=== PATIENT | male | born 1975 | race Caucasian/White ===

== ENCOUNTER 2018-02-04 17:08 | Emergency (ER) | payer BC ==
--- NOTE | 2018-02-04 17:23 | Emergency Department Record ---
History of Present Illness - General Chief Complaint: Abdominal Pain Stated Complaint: ABDOMINAL PAIN. Time Seen by Provider: 02/04/18 17:17 Source: Patient Mode of Arrival: Ambulatory Limitations: No limitations - History of Present Illness Initial Comments: The patient is here due to a one day hx of sharp stabbing LUQ AP. He denies any nausea, vomiting, diarrhea, CP, SOB, or CHAU. The patient has had a hx of constipation recently and feels it could be that. He did initially go to the and was sent over here. Additionally there has been no ALLEN, Cp with exertion or back pain. Also the patient does have an insect bite to the R arm that has swollen up locally. It also is very itchy. The patient has a hx of local reactions. MD Complaint: Abdominal pain Onset/Timin -: Hour(s) Location: LUQ Migration to: Epigastric Improves With: Nothing Worsens With: Nothing Associated Symptoms: Nausea, Vomiting - Related Data Previous Rx's Medication Instructions Recorded Prednisone [Prednisone 20Mg] 40 mg PO DAILY #10 tab 02/04/18 Allergies Allergy/AdvReac Type Severity Reaction Status Date / Time No Known Allergies Allergy none Verified 02/04/18 17:19 Travel Screening - Travel/Exposure Within Last 30 Days Have you traveled within the last 30 days?: Yes Location Detail:: [place] - Travel/Exposure Within Last Year Have you traveled outside the [place] in the last year?: No Location Detail:: [facility] - Additonal Travel Details Have you been exposed to anyone with a communicable illness?: No - Travel Symptoms Symptom Screening: None Review of Systems Constitutional: Denies: Chills, Fever Eyes: Denies: Eye discharge ENT: Denies: Congestion Respiratory: Denies: Cough, Dyspnea Past Medical History - SOCIAL HISTORY Smoking Status: Never smoker Alcohol Use: None Drug Use: None - RESPIRATORY Hx Respiratory Disorders: Yes Hx Sleep Apnea: Yes Hx of CPAP: Yes - CARDIOVASCULAR Hx Cardio Disorders: No - NEURO Hx Neuro Disorders: No - GI Hx GI Disorders: No - Hx Genitourinary Disorders: No - ENDOCRINE Hx Endocrine Disorders: No - MUSCULOSKELETAL Hx Musculoskeletal Disorders: No - PSYCH Hx Psych Problems: No - HEMATOLOGY/ONCOLOGY Hx Hematology/Oncology Disorders: No Family Medical History Any Significant Family History?: No Hx Cancer: Mother Hx HTN: Father Hx Kidney Disease: Father Hx Resp Disorders: Father Physical Exam - General General Appearance: Alert, Oriented x3, Cooperative, No acute distress - Head Head exam: Atraumatic, Normocephalic, Normal inspection - Eye Eye exam: Normal appearance, PERRL, EOMI - Neck Neck exam: Normal inspection, Full ROM. negative: Tenderness - Respiratory Respiratory exam: Normal lung sounds bilaterally. negative: Respiratory distress - Cardiovascular Cardiovascular Exam: Regular rate, Normal rhythm, Normal heart sounds - GI/Abdominal GI/Abdominal exam: Soft, Tenderness (There is very reproducible mild LUQ tenderness to palpation.). negative: Distended, Rebound, Rigid - Extremities Extremities exam: Full ROM, Normal capillary refill. negative: Normal inspection (There is an insect sting to the R arm with mild surrounding edema and erythema which appears to be a local allergic rxn.), Tenderness - Neurological Neurological exam: Alert, Normal gait. negative: Abnormal gait, Motor sensory deficit Course Vital Signs 02/04/18 17:09 Pulse Rate 90 Respiratory 16 Rate Blood Pressure 148/95 Pulse Ox 97 - Reevaluation(s) Reevaluation #1: I did recheck the patient and he does not want anything for the pain. I did discuss the CT results and the need for further evaluation with Oncology. Because of that I did discuss the case with Dr. Coleman and she will see the patient in the Specialty clinic hopefully and evaluate him further. She would like a biopsy so I will consult with Dr. Patel for the Biopsy. 02/04/18 18:38 02/04/18 18:44 Medical Decision Making - Data Complexity MDM Data: Labs Ordered and/or Reviewed, X-Ray Ordered and/or Reviewed, EKG Ordered and/or Reviewed - Lab Data Result diagrams: 02/04/18 17:39 02/04/18 17:39 - EKG Data -: EKG Interpreted by Me EKG: No Acute Changes - Radiology Data Radiology results: Report reviewed (CT: No acute process. Extensive lymphadenopathy possibly consistent with Lymphoma. ) Disposition Disposition: Discharge Clinical Impression: Lymphadenopathy Disposition: Home, Self-Care Condition: (2) Stable Instructions: Lymphadenopathy (ED) Additional Instructions: Please take Tylenol for the AP and the Prednisone for the L arm swelling at the bite site. Please see Dr. Patel on Friday in the Specialty clinic for a lymph node biopsy. DO NOT EAT OR DRINK PAST MIDNIGHT ON FRIDAY DUE TO THE BIOPSY ON FRIDAY. Also plan on seeing Dr. Coleman in the Specialty clinic on . Return to the ER for any worsening problems. Prescriptions: Prednisone [Prednisone 20Mg] 40 mg PO DAILY #10 tab Referrals: [facility] Specialty Clinics [Provider Group] Forms: Patient Portal Access Time of Disposition: 18:52 Quality - Quality Measures Quality Measures: N/A - Blood Pressure Screening View Details: Yes Does Patient Have Any of the Following: No Blood Pressure Classification: Hypertensive Reading Systolic Measurement: 148 Diastolic Measurement: 95 Screening for High Blood Pressure: < First Hypertensive BP, F/U Documented > [ [id number]] First Hypertensive Follow-up Interventions: Referral to alternative/primary care provider.
[2018-02-04] MEDS ORDERED: MAGNESIUM HYDROXIDE/AL HYDROX 30 ML, LIDOCAINE VISC 2% 15ML 15 ML PO ONE ×2 (17:27)
[2018-02-04 17:41] LABS: BASO % 0.3 % (0-6); GRAN % 57.5 % (47-80); HEMATOCRIT 44.8 % (42.0-52.0); HEMOGLOBIN 15.3 gm/dl (14.0-18.0); LYMPH % 27.5 % (16-45); MEAN CORPUSCULAR HEMOGLOBIN 30.1 pg (27-33); MEAN CORPUSCULAR HGB CONC 34.2 g/dl (32-36); MEAN PLATELET VOLUME 9.4 fl (7.4-10.4); MONO % 8.7 % (0-9); PLATELET COUNT 169 K/uL (130-400); RED BLOOD COUNT 5.09 M/uL (4.40-5.70); RED CELL DISTRIBUTION WIDTH 13.8 % (11.5-14.5); WHITE BLOOD COUNT W/O DIFF 6.7 K/uL (4.2-12.2)
[2018-02-04 17:51] LABS: URINE APPEARANCE CLEAR; URINE BILIRUBIN NEGATIVE (NEGATIVE); URINE BLOOD TRACE-I (NEGATIVE); URINE COLOR YELLOW; URINE GLUCOSE (UA) NEGATIVE (NEGATIVE); URINE KETONE NEGATIVE (NEGATIVE); URINE LEUKOCYTE ESTERASE NEGATIVE (NEGATIVE); URINE NITRITE NEGATIVE (NEGATIVE); URINE PROTEIN NEGATIVE (NEGATIVE); URINE UROBILINOGEN 0.2 E.U./dL (0.20 - 1.00)
[2018-02-04 17:53] LABS: BLOOD UREA NITROGEN 18 mg/dL (6-20); CREATININE 0.9 mg/dL (0.7-1.2); EST GLOMERULAR FILTRATION RATE > 60 mL/min; TOTAL PROTEIN 7.4 g/dL (6.6-8.7)
[2018-02-04 17:55] LABS: GLUCOSE,RANDOM 118 mg/dL (74-109)
[2018-02-04 17:58] LABS: ALBUMIN 4.3 g/dL (4.0-5.0); ALKALINE PHOSPHATASE 46 U/L (40-129); ALT/SGPT 30 U/L (<41); AST/SGOT 23 U/L (10.0-50.0)
[2018-02-04 17:59] LABS: BILIRUBIN,DIRECT < 0.2 mg/dL (0-0.3); URINE EPITHELIAL CELLS 0 - 2 (FEW); URINE RBC 0 - 2 (NONE SEEN); URINE WBC 0 - 2 (0-2/hpf)
[2018-02-04 18:00] LABS: URINE BACTERIA NONE SEEN
[2018-02-04] MEDS ORDERED: KETOROLAC 30 MG/ML VIAL IVP ONE (18:31)
--- NOTE | 2018-02-06 12:36 | CT SCAN REPORT ---
EXAM: CT SCAN OF THE ABDOMEN AND PELVIS WITHOUT CONTRAST HISTORY: SHARP LEFT UPPER QUADRANT ABDOMINAL PAIN AND RIB PAIN. NO KNOWN INJURY. TECHNIQUE: Standard CT imaging of the abdomen and pelvis was performed without contrast. Comparison: None. FINDINGS: The lung bases are clear. There are mildly enlarged right epicardial lymph nodes. The largest measures 1.5 x 2.9 cm. Multiple smaller epicardial lymph nodes are present bilaterally. The liver is normal in appearance. The gallbladder, biliary tree, pancreas, spleen, and adrenal glands are normal. The kidneys and ureters are unremarkable. There is no hydronephrosis or urinary tract calculus. The aorta is normal in caliber. There is a mildly enlarged portal caval lymph node measuring 1.8 x 2.6 cm. There are numerous scattered nonenlarged lymph nodes within the mesentery with a few borderline enlarged lymph nodes. The largest of these is located within the central mesentery and measures 1.1 x 1.6 cm. The large and small bowel loops are normal in appearance. The appendix is visualized and is unremarkable. There is no pneumoperitoneum or ascites. There are mildly enlarged lymph nodes within the external iliac chains bilaterally. The largest on the right measures 1.2 x 3.3 cm. The largest on the left measures 1.4 x 3 cm. Bilateral inguinal lymphadenopathy is also present. The largest on the right measures 2 x 3.2 cm. The largest on the left measures 1.4 x 2.5 cm. The urinary bladder and prostate gland appear normal. Bilateral spondylolysis is present at the L5 level with Grade 1 spondylolisthesis of L5 on S1. Degenerative changes are also present within the lumbar spine. No osteoblastic or osteolytic process is identified. IMPRESSION: 1. NO ACUTE INTRAABDOMINAL PATHOLOGY. THE ETIOLOGY OF THE PATIENT'S LEFT UPPER QUADRANT PAIN IS NOT APPARENT ON THIS EXAMINATION. 2. THERE ARE MULTIPLE MILDLY ENLARGED LYMPH NODES WITHIN THE EPICARDIAL SPACE, RETROPERITONEUM, MESENTERY, PELVIS, AND BILATERAL INGUINAL REGIONS. THIS PATTERN IS NONSPECIFIC, BUT SUSPICIOUS FOR LYMPHOMA. 3. THERE IS NO URINARY TRACT CALCULUS OR OBSTRUCTIVE UROPATHY. 4. BILATERAL SPONDYLOLYSIS AT THE L5 LEVEL WITH GRADE 1 SPONDYLOLISTHESIS OF L5 ON S1. JOB NUMBER: [id number] MTDD
== END 2018-02-04 19:05 | disposition home or self-care (01) ==
LOC: ER 17:08
DX: R59.0 Localized enlarged lymph nodes (principal); R10.12 Left upper quadrant pain; R11.2 Nausea with vomiting, unspecified
CPT/HCPCS: 74176; 80048; 80076; 81001; 83690; 85025; 93005; 93010; 99284

== ENCOUNTER 2018-02-09 08:55 | Day surgery (SDC) | payer BC ==
[2018-02-09] MEDS ORDERED: ONDANSETRON HCL IV 4 MG/2 ML VIAL IVP ONE (08:56)
[2018-02-09] MEDS ORDERED: MIDAZOLAM HCL 2MG/2ML VIAL IV ONE (08:56)
[2018-02-09] MEDS ORDERED: ACETAMINOPHEN 1,000 MG/100 ML BTL IV ONE (08:56)
[2018-02-09] MEDS ORDERED: SEVOFLURANE 250 ML INH ONE (08:56)
[2018-02-09] MEDS ORDERED: PROPOFOL 10 MG/ML VIAL IV ONE (08:56)
[2018-02-09] MEDS ORDERED: FENTANYL PF 100MCG/2ML VIAL IV ONE (08:56)
[2018-02-09] MEDS ORDERED: LIDOCAINE 2% MDV (20MG/ML) 20ML VIAL IV ONE (08:56)
[2018-02-09] MEDS ORDERED: BUPIVACAINE 0.25% W/EPI MPF 30ML VIAL IVP ONE (08:56)
[2018-02-09] MEDS ORDERED: CEFAZOLIN 2 Gram 2 GM/50 ML BAG IVPB ONE (08:56)
--- NOTE | 2018-02-12 10:39 | Operative Note ---
DATE OF SURGERY: 02/09/2018 Surgeon: Louie Patel DO PREOPERATIVE DIAGNOSIS: Lymphadenopathy. POSTOPERATIVE DIAGNOSIS: Lymphadenopathy. OPERATION: Right groin exploration with lymphadenectomy. Indication: The patient is a 42-year-old male who went to the ER over the weekend due to him not feeling well. CT scan did show fairly decreased lymphadenopathy in the retroperitoneal region as well as bilateral groin region. On exam, he had bilateral lymphadenopathy noted, more so on the right. We did discuss excision. Risks, benefits, and alternatives were discussed. Risks include bleeding, infection, lymphocele formation. He understood this fully. Thereafter, consent was signed and questions answered. PROCEDURE: The patient was taken to the operating room and placed in a supine position. General anesthesia was administered per the department of anesthesia. The patient's right groin was shaved of hair and prepped and draped in the usual fashion. Oblique region was anesthetized with a total of 8 mL of 0.25% Sensorcaine with epinephrine. Block was also done medial to the ASIS. A 3.5 cm incision made. This was carried down where a large cluster of lymph nodes was encountered. Proximal and distal ends were dissected free and tied off with 2-0 ties. These were then excised, passed off the field, and sent fresh for flow cytometry. These were just anterior to the femoral artery. At this time, the wound was irrigated and closed with 2-0 and 4-0 Vicryl. Dermabond was placed. He was taken to the recovery room in satisfactory condition. Final pathology pending. CC: MD Jeannie Schreiber
== END 2018-02-09 11:35 | disposition home or self-care (01) ==
LOC: SUR 08:55
PROVIDERS: ATTEND Surgery
DX: C83.15 Mantle cell lymphoma, lymph nodes of inguinal region and lower limb (principal)
CPT/HCPCS: 38765; 00860; J2405; J3010; J0690

== ENCOUNTER → 2018-03-02 | Day surgery (SDC) | payer BC ==
[~2018-03-02] MED LIST: ACETAMINOPHEN 1,000 MG/100 ML BTL IV ONE; BUPIVACAINE 0.25% W/EPI MPF 30ML VIAL IVP ONE; CEFAZOLIN 1 Gram 1 GM/50 ML BAG IVPB ONE; CEFAZOLIN 2 Gram 2 GM/50 ML BAG IVPB ONE; FENTANYL PF 100MCG/2ML VIAL IV ONE; HEPARIN SODIUM FLUSH 100 UNITS/ML SYR 5ML IVP ONE; LIDOCAINE 2% MDV (20MG/ML) 20ML VIAL IV ONE; MIDAZOLAM HCL 2MG/2ML VIAL IV ONE; ONDANSETRON HCL IV 4 MG/2 ML VIAL IVP ONE; PROPOFOL 10 MG/ML VIAL IV ONE; SEVOFLURANE 250 ML INH ONE
--- NOTE | 2018-03-03 13:30 | Operative Note ---
DATE OF SURGERY: 03/02/2018 Surgeon: Louie Patel DO PREOPERATIVE DIAGNOSES: 1. Mantle cell lymphoma. 2. right arm rash. POSTOPERATIVE DIAGNOSES: 1. Mantel cell lymphoma. 2. right arm rash. OPERATION: [id number] placement with fluoroscopy as well as punch biopsy of right arm. Indication: The patient is a 42-year-old male with unfortunate recent diagnosis of mantle cell lymphoma. He needed a port placed for IV chemotherapy. Risks, benefits, and alternatives were discussed. Risks include bleeding, infection, 1 % chance of pneumothorax, malfunctioning catheter, need for replacement. He understood this fully. He also developed rash on the upper arm which the oncologist did request biopsy. Thereafter, consent was signed and questions answered. PROCEDURE: The patient was taken to the operating room and placed in a supine position. General anesthesia was administered per the department of anesthesia. The patient's arm was tucked to the side. Chest was shaved of hair and prepped and draped in the usual fashion. At this time, adequate time-out was performed. He did receive preoperative 3 g of Ancef. At this time, the left infraclavicular region was anesthetized with a total of 10 mL of 0.25% Sensorcaine with epinephrine. An 18-litzy Cook finder needle used to cannulate the left subclavian vein on first attempt. The guidewire was inserted; however, it would not feed despite multiple attempts. This was done on 2 additional occasions. Each time the left subclavian vein was cannulated; however, the wire would not feed. We had no access to additional wires including a Wooly wire. Therefore, right side was then selected. This area was anesthetized and the right subclavian vein was cannulated on first attempt. This wire fed without difficulty under direct fluoroscopic guidance. At this time, a 9.0-Mongolian single lumen [employer] port was assembled and trimmed. Pocket was created inferior to the site. This was fed through the stab incision. At this time, a dilator and Peel-Away sheath were placed over the wire under direct fluoroscopic guidance as the dilator was removed. The catheter was fed down the lumen of the Peel-Away sheath under direct fluoroscopic guidance. It was noted to be in adequate position. This did aspirate and flush well. At this time, this was sutured to the pectoralis fascia with 2-0 Vicryl. Skin was closed with 3-0 and 4-0 Vicryl. Attention now turned to the right upper arm. This was prepped and draped. This was anesthetized with a total of 4 mL of 0.25% Sensorcaine with epinephrine. A 5 mm punch biopsy was used to take a full-thickness segment of skin and subcutaneous tissue. This wound was then closed with 3-0 nylon. Tolerated the procedure well. Final chest x-ray pending. CC: JUNE Thompson
--- NOTE | 2018-03-05 07:56 | RADIOLOGY REPORT ---
EXAM: PORTABLE CHEST HISTORY: STATUS POST RIGHT SIDE [id number] INSERTION. TECHNIQUE: A single frontal view of the chest was obtained. Comparison: Chest radiographic 09/04/08. FINDINGS: Right sided port catheter with tip in the projection of the upper right atrium. The cardiac silhouette is within normal size limits. Minimal streaky left perihilar opacities, likely atelectasis. Otherwise no focal pulmonary opacities. No pleural effusion. No pneumothorax. IMPRESSION: RIGHT SIDED PORT CATHETER ABOVE. JOB NUMBER: [id number] [facility]
== END | disposition home or self-care (01) ==
LOC: SUR 10:57
PROVIDERS: ATTEND Surgery
DX: C83.10 Mantle cell lymphoma, unspecified site (principal); R21 Rash and other nonspecific skin eruption
CPT/HCPCS: 36561; 11100; 00532; 71045; 77001; J2405; J3010; J0690 ×2; J1642

== ENCOUNTER 2018-04-27 09:32 | Day surgery (SDC) | payer BC ==
[2018-04-27] MEDS ORDERED: ACETAMINOPHEN 1,000 MG/100 ML BTL IV ONE (09:33)
[2018-04-27] MEDS ORDERED: LIDOCAINE 2% MDV (20MG/ML) 20ML VIAL IV ONE (09:33)
[2018-04-27] MEDS ORDERED: MIDAZOLAM HCL 2MG/2ML VIAL IV ONE (09:33)
[2018-04-27] MEDS ORDERED: KETAMINE HCL 100MG/1ML VIAL INJ ONE (09:33)
[2018-04-27] MEDS ORDERED: BUPIVACAINE 0.25% W/EPI MPF 30ML VIAL IVP ONE (09:33)
[2018-04-27] MEDS ORDERED: PROPOFOL 10 MG/ML VIAL IV ONE (09:33)
--- NOTE | 2018-04-28 10:50 | Operative Note ---
DATE OF SURGERY: 04/27/2018 Surgeon: Louie Patel DO PREOPERATIVE DIAGNOSIS: Lymphoma. POSTOPERATIVE DIAGNOSIS: Lymphoma. OPERATION: Infusaport removal. Indication: The patient is a 42-year-old male who had the unfortunate diagnosis of lymphoma. We did place a port after his diagnosis; however, when he saw Oncology, they felt that observation was better served. He did not want to keep the port in due to the fact that he drags a hose at work and this rubbed over the port causing him pain. He knows that if he needs treatment in the future, the port will have to be replaced. Risks, benefits, and alternatives were discussed. Risks include bleeding and infection. He understood this fully. Thereafter, consent was signed and questions answered. PROCEDURE: The patient was taken to the operating room and placed in a supine position. Local and IV sedation was given per the department of anesthesia. The patient's chest was shaved of hair and prepped and draped in the usual fashion. The area around the prior incision was anesthetized with a total of 5 mL of 0.25% Sensorcaine with epinephrine. A 3 cm incision was made. This was carried down to the capsule of the plastic Infusaport. This was removed out of the wound. A pursestring suture was placed around the fistulous tract in the subclavian vein. This was tied down as the port was fully removed. Hemostasis was noted. At this time, the wound was closed with 3-0 and 4-0 Vicryl. Steri-Strips were applied. He was taken to the recovery room in satisfactory condition. CC: JUNE Thompson
== END 2018-04-27 13:00 | disposition home or self-care (01) ==
LOC: SUR 09:32
PROVIDERS: ATTEND Surgery
DX: C85.90 Non-Hodgkin lymphoma, unspecified, unspecified site (principal); G47.33 Obstructive sleep apnea (adult) (pediatric)
CPT/HCPCS: J3490